=== PATIENT | female | born 1950 | race Caucasian/White ===

== ENCOUNTER 2019-01-29 08:34 | Emergency (ER) | payer MEDICARE, OTHER, SELFPAY ==
[2019-01-29 08:35] VITALS: BP 213/101; PULSE 60; RESP 18; TEMP 36.4; O2SAT 96; BMI 39.8
--- NOTE | 2019-01-29 08:45 | EKG12_ITS ---
Test Reason : HYPERTENSION Blood Pressure : / mmHG Vent. Rate : 058 BPM Atrial Rate : 058 BPM P-R Int : 190 ms QRS Dur : 080 ms QT Int : 424 ms P-R-T Axes : 049 013 049 degrees QTc Int : 416 ms Sinus bradycardia Otherwise normal ECG Confirmed by EILEEN DALAL, SELENE ([id number]), slot editor ALAINA VEGA ([id number]) on 01/31/2019 8:55:52 AM Referred By: ELIGIO Confirmed By:SELENE ARELLANO MD
--- NOTE | 2019-01-29 08:45 | CT_ITS ---
STUDY: CT BRAIN WITHOUT CONTRAST REASON FOR EXAM: Female, 68 years old. One-week history of blurred vision and headaches. Hypertension. RADIATION DOSAGE (If Supplied By Facility): CTDIvol = ( 44.99 ) mGy, DLP = ( 779.24 ) mGycm TECHNIQUE: Transaxial CT imaging of the brain was performed without administration of intravenous contrast material. Individualized dose optimization techniques were used for this CT. COMPARISON: Comparison is made with prior study dated February 29, 2016. FINDINGS: Normal soft tissue structures. Normal calvarium. There is mild cerebral atrophy with widening of the extra-axial spaces and ventricular dilatation. There are areas of decreased attenuation within the white matter tracts of the supratentorial brain, consistent with microvascular disease changes. Normal basal ganglia and thalami. Normal brainstem. Normal cerebellum. There is no intracranial hemorrhage. There are no findings of an acute ischemic infarction. Atherosclerotic calcification of the vertebral arteries and cavernous portions of the internal carotid arteries bilaterally. Mucosal thickening of the right maxillary sinus. CT/Brain/Head without Contrast IMPRESSION: Chronic involutional changes of the brain. Mucosal thickening of the right maxillary sinus. Electronically Signed: Christiano Khalil, at 10:10 EDT , Service support ,
--- NOTE | 2019-01-29 08:46 | ED.VIS.GEN ---
History of Present Illness Chief Complaint: Hypertension Informant: Patient Onset: Weeks Context: Gradual Onset Timing: Intermittent Current Severity: Moderate Maximum Severity: Moderate Narrative: The patient presents to the emergency department with headache and elevated blood pressure. The patient states that normally, her blood pressure runs between 140 and 150 systolic. She states over the past week, she is had highs anywhere from 1 80-2 10. She states she is been compliant with her medications. She states there is been no recent change in her medications. She does admit to a pounding headache in her temples especially when her blood pressure is high. She states that her vision was blurry, but thinks it is because she needs new glasses. She denies any trouble speech. She denies any trouble swallowing. She denies any weakness. She has not had chest pain. She does admit to some shortness of breath, but states is been going on for months. Prior similar symptoms: No Recent Illness/Hospitalization: No Past Medical History - Allergies and Home Meds Allergies/Adverse Reactions: Allergies codeine Adverse Reaction (Verified 01/29/19 08:38) Vomiting Penicillins Adverse Reaction (Verified 01/29/19 08:38) Swelling Primary Care Physician: Bee Price MD [Primary Care Provider] - Prior records reviewed: Yes Past Medical History: - - Hypertension Surgical History: - - The section, nasal surgery Lives: With Family Smoking Status: Never smoker Alcohol: None Drugs: None - Family History Maternal Family History: Reports: Hypertension Paternal Family History: Reports: Stroke Review of Systems General: Denies: Chills, Fever, Sweats Eyes: Reports: Blurred Vision - bilaterally. Denies: Visual changes - bilaterally, Diplopia ENT: Denies: Rhinorrhea, Sore throat Cardiovascular: Denies: Chest pain, Palpitations Respiratory: Denies: Dyspnea, Cough, Dyspnea on exertion Gastrointestinal: Denies: Abdominal pain, Nausea, Vomiting, Diarrhea, Melena, Hematochezia Genitourinary: Denies: Dysuria, Hematuria, Frequency Musculoskeletal: Denies: Back pain, Extremity Pain Skin: Denies: Rash, Wounds Neurological: Reports: Headache. Denies: Weakness, Numbness Psych: Denies: Depression, Anxiety Endocrine: Denies: Polyuria Hematologic: Denies: Easy bruising Allergy: Denies: Uticaria Physical Exam Vital Signs/Narrative: Vital Signs Temp Pulse Resp BP Pulse Ox 01/29/19 08:35 97.6 F L 60 18 213/101 H 96 Inital Vital Signs reviewed: Yes General: Well nourished, Well developed, No Acute Distress Head: Normocephalic, Atraumatic Eyes: Perrl, EOMI ENT: Moist mucous membranes, No rhinorrhea Neck: Supple, Nontender Cardiovascular: Regular rate, Regular rhythm, No murmurs Respiratory: No distress, CTA bilaterally, Chest nontender Abdomen: Soft, Nontender, Nondistended, Normal bowel sounds Back: Nontender, Normal Inspection Extremities: Nontender, No edema Skin: Normal color, No rash Neurological: Alert, Oriented x3, Cranial nerves II-XII grossly intact, Normal Strength, Normal Sensation Psychological: Normal affect, Normal Mood Diagnostic/Tx/Re-eval Clinical Impression(s) from Imaging Studies Brain CT 01/29/19 08:45 IMPRESSION: Chronic involutional changes of the brain. Mucosal thickening of the right maxillary sinus. Electronically Signed: Christiano Khalil, at 10:10 EDT , Service support , Abnormal Lab Results 01/29/19 01/29/19 09:15 09:15 WBC 6.5 RBC 4.05 L Hgb 12.9 Hct 37.9 MCV 93.6 MCH 31.9 MCHC 34.0 RDW Std Deviation 43.8 RDW Coeff of Nargis 12.7 Plt Count 273 MPV 9.5 Immature Gran % (Auto) 0.300 Neut % (Auto) 64.1 Lymph % (Auto) 22.4 Moca % (Auto) 8.7 Eos % (Auto) 3.7 Baso % (Auto) 0.8 Absolute Neuts (auto) 4.2 Absolute Lymphs (auto) 1.45 Nucleated RBC % 0 Sodium 140 Potassium 3.9 Chloride 108 H Carbon Dioxide 26.0 Anion Gap 6 BUN 13 Creatinine 0.96 Estim Creat Clear Calc 47.04 Est GFR (MDRD) Af Amer 74 Est GFR (MDRD) Non-Af 61 BUN/Creatinine Ratio 13.5 Glucose 95 Calcium 8.8 Total Bilirubin 0.40 AST 17 ALT 21 Alkaline Phosphatase 103 Total Protein 7.4 Albumin 3.7 Globulin 3.7 Albumin/Globulin Ratio 1.0 - Rhythm Strip Rhythm Strip: Sinus Rhythm Rate: 58 Ectopy: None - EKG Initial EKG Interpretation: Sinus Rhythm, No Acute Injury Pattern Prior: Unchanged - Medical Decision Making The patient presents to the emergency department elevated blood pressure and headache. Her neuro exam is reassuring. She has an NIH of 0 and a GCS of 15. Patient was given hydralazine and had significant improvement of her blood pressure and improvement of her headache. EKG was obtained which showed no evidence of strain pattern. Screening labs are also unremarkable. With the patient's headache, I did obtain a head CT. This is also negative. In review with the patient, she has stopped taking her amlodipine just over a month ago. I feel this is likely the cause of her new hypertensives. I did eligibility counselor her on the importance of taking this. I will refill her prescription. At this point, I do feel that she is safe for outpatient therapy. She is comfortable with this plan of care. Impression 1. Hypertension-established secondary to noncompliance ED Disposition - Plan for ED Patient: Instructions: HYPERTENSION, Established Prescriptions: Amlodipine [Norvasc] 5 mg PO DAILY #30 tab Prescription Printed Referrals: Bee Price MD [Primary Care Provider] -
[2019-01-29 09:22] LABS: Absolute Lymphocyte Count 1.45 X10^3/uL (0.83-4.51); Absolute Neutrophil Count 4.2 X10^3/uL (2.0-7.7); Basophil# 0.05 X10^3/uL; Basophil% 0.8 % (0-1); Eosinophil# 0.24 X10^3/uL; Eosinophils% 3.7 % (0-5); Hematocrit 37.9 % (37-47); Hemoglobin 12.9 g/dL (12.0-15.0); Lymphocyte # 1.45 X10^3/ul (4.0); Lymphocyte % 22.4 % (19-41); Mean Corpuscular Hgb 31.9 pg (27.0-32.0); Mean Corpuscular Volume 93.6 fL (81-99); Mean Platelet Vol. 9.5 fl (6.2-12.0); Monocyte# 0.56 X10^3/uL; Monocyte% 8.7 % (0-10); NRBC Flagged by Analyzer 0 % (0-5); Neutrophil # 4.15 X10^3/uL (2.7-7.7); Neutrophil % 64.1 % (47-70); Platelet Count 273 K/mm3 (150-450); RBC Distribution Width CV 12.7 % (11.6-14.6); RBC Distribution Width SD 43.8 fl (35.1-43.9); Red Blood Count 4.05 M/mm3 (4.2-5.4); White Blood Count 6.5 K/mm3 (4.4-11.0)
[2019-01-29] MEDS: hydrALAZINE 20 MG/ML Vial 5 MG IV (09:26)
[2019-01-29 09:39] LABS: AST(SGOT) 17 U/L (15-37); Alanine Aminotransfer ALT/SGPT 21 U/L (13-56); Albumin, Serum 3.7 g/dL (3.2-5.0); Alkaline Phosphatase 103 U/L (45-117); Anion Gap 6 (5-15); BUN 13 mg/dL (7-18); BUN/Creat Ratio 13.5 RATIO (10-20); Calcium,Total 8.8 mg/dL (8.5-10.1); Chloride 108 mmol/L (98-107); Creatinine, Serum 0.96 mg/dL (0.55-1.02); EST Glomerular Filtration Rate 61 mL/min (>60); Est Glom Filt Rate - Afr Amer 74 mL/min (>60); Estimated Creatinine Clearance 47.04 ml/min; Globulin 3.7 g/dL (2.2-4.2); Glucose 95 mg/dL (74-106); Potassium 3.9 mmol/L (3.5-5.1); Protein, Total 7.4 g/dL (6.4-8.2); Sodium Level 140 mmol/L (136-145)
[2019-01-29 10:11] VITALS: BP 150/80; PULSE 66; RESP 13; O2SAT 98
[2019-01-29 11:02] VITALS: BP 159/85; PULSE 68; RESP 15; O2SAT 98
--- NOTE | 2019-01-30 13:43 | ED.RN ---
PT COULD NOT FIND HER PRESCRIPTION SO ANOTHER ONE WAS CALLED IN TO [facility] GALLO FROM [facility]AYLEY HOLGUIN MD
== END 2019-01-29 11:03 | disposition home or self-care (01) ==
LOC: ED 09:18
PROVIDERS: Emergency Provider Emergency Medicine; Family Provider Internal Medicine; PCP Internal Medicine
DX: I10 Essential (primary) hypertension (principal); Z91.19 Patient's noncompliance with other medical treatment and regimen; Z91.14 Patient's other noncompliance with medication regimen; Z88.0 Allergy status to penicillin; Z88.5 Allergy status to narcotic agent
CPT/HCPCS: 36415; 70450; 80053; 85025; 93005; 96374; 99285; J7030; A4216

== ENCOUNTER 2022-04-28 16:52 | Emergency (ER) | payer MEDICARE, OTHER, SELFPAY ==
[2022-04-28] VITALS (11 sets, daily range): BP systolic 122–150; BP diastolic 64–89; PULSE 54–70; RESP 13–22; TEMP 35.8–37.2; O2SAT 95–99; BMI 40.7
--- NOTE | 2022-04-28 17:47 | EKG12_ITS ---
Test Reason : CP Blood Pressure : / mmHG Vent. Rate : 061 BPM Atrial Rate : 061 BPM P-R Int : 178 ms QRS Dur : 074 ms QT Int : 400 ms P-R-T Axes : 060 029 052 degrees QTc Int : 402 ms Normal sinus rhythm Low voltage QRS Borderline ECG Confirmed by MALIKA DALAL, CLARICE ([id number]), department editor ALAINA VEGA ([id number]) on 05/04/2022 9:30:32 A M Referred By: JANET/EZIO Confirmed By:ALVARO DALY MD
--- NOTE | 2022-04-28 17:48 | ED.VIS.CHEST ---
HPI History of Present Illness Chief Complaint: Chest Pain Informant: patient Onset/Context/Timing Onset: Hours (several) Activity at onset: sudden, onset, activity on onset and rest Timing: Continuous Quality: Positive for Aching (substernal) and Sharp (RUE and neck) Current Severity: Moderate Maximum Severity: Moderate Worsened By: Breathing (back/neck mildly) Relieved By: Nothing Associated Symptoms: Positive for Nausea and Dyspnea; Negative for Lightheadedness or Palpitations Narrative Narrative: Patient having chest discomfort has been constant for the last couple hours, has never had this before. Started in her back and right neck down into her right upper extremity, discomfort not numbness. Somewhat of a pleuritic component. No history of DVT or PE. No recent travel or immobilization/hospitalization/surgery. Swelling in both of her legs for the last several months. Last time she had a treadmill stress test was several years ago, she has never required heart catheterization or had any other heart issues that she knows of. [facility] Medical History Anxiety CPAP (continuous positive airway pressure) dependence Depression Hypertension Hypothyroidism Kidney stones Non-smoker Sleep apnea Home Medications ibuprofen 600 mg tablet 600 mg PO DAILY PRN Pain 02/29/16 [History Last Taken Unknown] levothyroxine 100 mcg tablet 100 mcg PO DAILY 02/29/16 [History Last Taken Unknown] meclizine 25 mg tablet (Antivert) 25 mg PO Q6H PRN PRN Vertigo 02/29/16 [History Last Taken Unknown] quetiapine 100 mg tablet 100 mg PO QHS 02/29/16 [History Last Taken Unknown] amlodipine 2.5 mg tablet 2.5 mg PO DAILY 01/29/19 [History Last Taken Unknown] amlodipine 5 mg tablet 5 mg PO DAILY #30 tabs 01/29/19 [Rx Last Taken Unknown] atenolol 50 mg tablet 50 mg PO DAILY 01/29/19 [History Last Taken Unknown] furosemide 20 mg tablet 20 mg PO QODAY 01/29/19 [History Last Taken Unknown] loratadine 10 mg capsule 10 mg PO DAILY 01/29/19 [History Last Taken Unknown] olmesartan 40 mg tablet 40 mg PO DAILY 01/29/19 [History Last Taken Unknown] potassium chloride 10 mEq tablet,extended release 2 tab PO QODAY 01/29/19 [History Last Taken Unknown] Allergy/AdvReac Type Severity Reaction Status Date / Time codeine AdvReac Vomiting Verified 04/28/22 16:56 Penicillins AdvReac Swelling Verified 04/28/22 16:56 Social History Smoking Status: Never smoker ROS ROS ED Constitutional Constitutional ED: Denies chills or fever(s) Eyes Eyes: Denies change in vision or diplopia ENT ENT ED: Denies rhinorrhea or sore throat Cardiovascular Cardiovascular: Reports chest pain; Denies palpitations Respiratory/Chest Respiratory/Chest: Reports dyspnea; Denies cough Gastrointestinal Gastrointestinal: Reports nausea; Denies abdominal pain, diarrhea or vomiting Genitourinary Genitourinary ED: Denies dysuria or hematuria Musculoskeletal Musculoskeletal: Reports as per HPI, back pain and extremity pain; Denies neck pain Integumentary Denies abscess or rash Neurologic Neurologic: Denies headache(s), paresthesias or weakness Psychiatric Psychiatric: Denies anxiety or suicidal thoughts EXAM Physical Exam Const Vital Signs: 04/28/22 16:53 04/28/22 17:01 04/28/22 17:01 Temperature 98.9 F Temperature Source Temporal Pulse Rate 70 68 Respiratory Rate 16 16 Respiratory Effort Normal Blood Pressure 141/84 H 150/76 H Blood Pressure Mean 103 100 Pulse Ox 95 97 Oxygen Delivery Method Room Air Room Air 04/28/22 18:10 04/28/22 18:11 04/28/22 18:17 Temperature Temperature Source Pulse Rate 56 L 57 L 67 Respiratory Rate 13 Respiratory Effort Blood Pressure 147/68 H 147/68 H 142/75 H Blood Pressure Mean 94 Pulse Ox 97 Oxygen Delivery Method Room Air 04/28/22 18:22 04/28/22 19:09 04/28/22 19:09 Temperature Temperature Source Pulse Rate 64 57 L Respiratory Rate 21 H Respiratory Effort Blood Pressure 123/67 H 123/64 H Blood Pressure Mean 83 Pulse Ox 96 Oxygen Delivery Method Room Air Room Air Positive well nourished, well developed and obese General Appearance ED: well developed and NAD Nutritional Appearance: obese HEENT Reports moist mucous membranes normocephalic and atraumatic Eyes PERRL and EOMs intact bilaterally Neck full ROM and supple Resp normal respiratory effort and clear to auscultation bilaterally Cardio regular rate and regular rhythm Cardio Narrative: Systolic murmur decrescendo 2/6 Peripheral Pulses: pulses 2+ throughout GI non-tender and non-distended Auscultation: normoactive bowel sounds Palpation: soft Back/Spine no CVA tenderness General Back: other FROM Extremity normal to inspection General Extremety ED: Yes edema; Negative for pulses abnormal or tenderness General Extremity: edema bilateral lower extremity Details: mild (Limited exam due to obesity. No significant pitting.); Negative for pulses abnormal Neuro oriented x3, CN's II-XII intact bilaterally and no sensory deficits noted Sensorium / Orientation: awake and alert Motor Exam: strength 5/5 throughout Skin no rashes or lesions noted and no wounds Heart Score History: Moderately Suspicious ECG: Normal Age: >/= 65 years Risk Factors: 1 or 2 Risk Factors Troponin: </= Normal Limit Score: 4 MDM MDM MDM Narrative Medical decision making narrative: Cardiac work-up including a D-dimer was obtained since the patient has mildly pleuritic component of discomfort, the D-dimer was elevated at 2.8, so we did a CT angiography of the chest for this low risk patient otherwise, it is negative for pulmonary embolus or anything else acute. In the meantime patient was given aspirin and nitroglycerin, this did not improve her symptoms but they were still present. She remains comfortable without any distress or other new symptoms or telemetry events. Her EKG is normal. Her initial troponin is 7, the repeat is 8. Her heart score is 4, 5 if you consider her history more concerning because it got better with nitroglycerin. Discussed all that with Dr. Pradhan, he agrees that esophageal etiologies are in the differential here, and agrees that outpatient follow-up is reasonable. We will have the patient follow-up with her PCP, and I will offer her a GI cocktail or similar prior to discharge. Lab Data Attestation: I reviewed the patient's lab results. Labs: Laboratory Results - last 24 hr 04/28/22 04/28/22 04/28/22 18:03 18:03 18:03 WBC 5.9 RBC 3.28 L Hgb 10.6 L Hct 32.2 L MCV 98.2 MCH 32.3 H MCHC 32.9 RDW Std Deviation 47.6 H RDW Coeff of Nargis 13.2 Plt Count 240 MPV 9.7 Immature Gran % (Auto) 0.300 Neut % (Auto) 75.1 H Lymph % (Auto) 13.2 L Sibley % (Auto) 8.0 Eos % (Auto) 2.7 Baso % (Auto) 0.7 Absolute Neuts (auto) 4.4 Absolute Lymphs (auto) 0.78 L Nucleated RBC % 0 APTT 31.0 D-Dimer Quant (PE/DVT) 2.81 H* Sodium 139 Potassium 3.7 Chloride 107 Carbon Dioxide 26.0 Anion Gap 6 BUN 14 Creatinine 1.43 H Estim Creat Clear Calc 30.28 Est GFR (MDRD) Af Amer 47 L Est GFR (MDRD) Non-Af 39 L BUN/Creatinine Ratio 9.8 L Glucose 95 Calcium 8.3 L Troponin I High Sens 7 B-Natriuretic Peptide 04/28/22 04/28/22 18:03 20:11 WBC RBC Hgb Hct MCV MCH MCHC RDW Std Deviation RDW Coeff of Nargis Plt Count MPV Immature Gran % (Auto) Neut % (Auto) Lymph % (Auto) Sibley % (Auto) Eos % (Auto) Baso % (Auto) Absolute Neuts (auto) Absolute Lymphs (auto) Nucleated RBC % APTT D-Dimer Quant (PE/DVT) Sodium Potassium Chloride Carbon Dioxide Anion Gap BUN Creatinine Estim Creat Clear Calc Est GFR (MDRD) Af Amer Est GFR (MDRD) Non-Af BUN/Creatinine Ratio Glucose Calcium Troponin I High Sens 8 B-Natriuretic Peptide 167.5 H Radiography Chest X-Ray - ED: 1 View, Read by ED Physician, Normal and No Acute Disease Diagnostic Testing: Clinical Impression(s) from Imaging Studies Chest X-Ray 04/28/22 18:22 IMPRESSION: There are no acute findings. Electronically Signed: Madhav Post MD at 18:53 EST , Chest CTA 04/28/22 19:23 IMPRESSION: No demonstrated pulmonary embolism or arterial dissection. Electronically Signed: Madhav Post MD at 19:49 EST , Rhythm Strip Rhythm Strip: Sinus Rhythm Rate: 60 Ectopy: None EKG Initial EKG: Attestation: I personally reviewed and interpreted this EKG as follows: Interpretation: Sinus Rhythm and No Acute Injury Pattern Discharge Plan Triage Chief Complaint: Chest Pain ED Provider: Jere Childs Dx/Rx/DC Orders Clinical Impression: Chest pain, unspecified, Acute upper back pain Instructions: ED Chest Pain, Uncertain Cause Prescriptions: No Action ibuprofen 600 MG tablet 600 mg PO DAILY PRN (Reason: Pain) Label Comments: PAIN quetiapine 100 MG tablet 100 mg PO QHS Label Comments: SLEEP meclizine [Antivert] 25 MG tablet 25 mg PO Q6H PRN PRN (Reason: Vertigo) Label Comments: VERTIGO levothyroxine 100 MCG tablet 100 mcg PO DAILY Label Comments: THYROID amlodipine 2.5 MG tablet 2.5 mg PO DAILY potassium chloride 10 MEQ tablet extended release 2 tab PO QODAY furosemide 20 MG tablet 20 mg PO QODAY atenolol 50 MG tablet 50 mg PO DAILY olmesartan 40 MG tablet 40 mg PO DAILY loratadine 10 MG capsule 10 mg PO DAILY amlodipine 5 MG tablet 5 mg PO DAILY Qty: 30 0RF Primary Care Provider: Bee Price Referrals: Bee Price MD [Primary Care Provider] - As soon as possible Disposition Disposition: Home, Self Care
[2022-04-28] MEDS: Nitroglycerin SL (ED/IMG/CATH) 0.4 MG TABLET SL ×3 (18:11→18:22)
[2022-04-28] MEDS: Aspirin 81 MG TAB.CHEW 324 MG PO (18:11)
[2022-04-28] MEDS: 0.9% Normal Saline 1,000 ML 150 ML IV (18:11)
[2022-04-28 18:16] LABS: Absolute Lymphocyte Count 0.78 X10^3/uL (0.83-4.51); Absolute Neutrophil Count 4.4 X10^3/uL (2.0-7.7); Basophil# 0.04 X10^3/uL; Basophil% 0.7 % (0-1); Eosinophil# 0.16 X10^3/uL; Eosinophils% 2.7 % (0-5); Hematocrit 32.2 % (37-47); Hemoglobin 10.6 g/dL (12.0-15.0); Lymphocyte # 0.78 X10^3/ul (0.83-4.51); Lymphocyte % 13.2 % (19-41); Mean Corp Hgb Conc 32.9 g/dL (32-36); Mean Corpuscular Hgb 32.3 pg (27.0-32.0); Mean Corpuscular Volume 98.2 fL (81-99); Mean Platelet Vol. 9.7 fl (6.2-12.0); Monocyte# 0.47 X10^3/uL; NRBC Flagged by Analyzer 0 % (0-5); Neutrophil # 4.43 X10^3/uL (2.7-7.7); Neutrophil % 75.1 % (47-70); Platelet Count 240 K/mm3 (150-450); RBC Distribution Width CV 13.2 % (11.6-14.6); RBC Distribution Width SD 47.6 fl (35.1-43.9); Red Blood Count 3.28 M/mm3 (4.2-5.4); White Blood Count 5.9 K/mm3 (4.4-11.0)
--- NOTE | 2022-04-28 18:22 | RAD_ITS ---
STUDY: XR Chest 1 View 04/28/2022 6:22 PM REASON FOR EXAM: Female, 71 years old. CHEST PAIN chest pain COMPARISON: 02/29/2016 TECHNIQUE: XR Chest 1 View FINDINGS: There is no demonstrated pleural abnormality. Normal heart size. Normal mediastinum. Normal jerome. Prominent appearing increased interstitial lung markings. Normal visualized pulmonary arteries. There is atherosclerotic calcification of the aortic arch with tortuosity. There are diffuse degenerative changes of the visualized thoracic spine. There is degenerative osteoarthritis of the bilateral shoulders. There is no demonstrated abnormality of the visualized soft tissue structures of the upper abdomen. RAD/Chest 1 View (Portable) IMPRESSION: There are no acute findings. Electronically Signed: Madhav Post MD at 18:53 EST ,
[2022-04-28 18:25] LABS: Anion Gap 6 (5-15); BUN 14 mg/dL (7-18); BUN/Creat Ratio 9.8 RATIO (10-20); Calcium,Total 8.3 mg/dL (8.5-10.1); Chloride 107 mmol/L (98-107); Creatinine, Serum 1.43 mg/dL (0.55-1.02); EST Glomerular Filtration Rate 39 mL/min (>60); Est Glom Filt Rate - Afr Amer 47 mL/min (>60); Estimated Creatinine Clearance 30.28 ml/min; Glucose 95 mg/dL (74-106); Potassium 3.7 mmol/L (3.5-5.1); Sodium Level 139 mmol/L (136-145); Troponin-I HS (w/2H Reflex) 7 pg/mL (3.0-54.0)
[2022-04-28 18:34] LABS: BNP,B-Type NATRIURETIC PEPTIDE 167.5 pg/mL (0-100)
[2022-04-28 18:41] LABS: D-Dimer Quantitative (DVT/PE) 2.81 FEU/ug/m (0.27-0.49)
--- NOTE | 2022-04-28 19:23 | CT_ITS ---
EXAM: CT ANGIOGRAPHY CHEST WITHOUT AND WITH INTRAVENOUS CONTRAST CLINICAL INDICATION: chest and back pain, elevated d-dimer TECHNIQUE: Helically acquired angiography images were obtained of the chest without and with intravenous contrast. This CT exam was performed using one or more of the following dose reduction techniques: automated exposure control, adjustment of the mA and/or kV according to patient size, and/or use of iterative reconstruction technique. This report was created using [employer] report generation technology. MIP reconstructed images were created and reviewed. CONTRAST: IV 100mL [id number] RADIATION DOSE: CTDIvol = 12.61 mGy, DLP = 520.10 mGy-cm COMPARISON: None. FINDINGS: PULMONARY ARTERIES: No demonstrated pulmonary embolism or arterial dissection. AORTA: There is atherosclerotic calcification of the aortic arch with tortuosity and elongation of the aortic arch and descending thoracic aorta. Normal in caliber. No evidence of dissection. GREAT VESSELS OF AORTIC ARCH: Unremarkable. Normal in caliber. No evidence of dissection. LUNGS AND PLEURAL SPACES: Unremarkable. No mass. No consolidation or edema. No pleural effusion or thickening. No pneumothorax. HEART: Unremarkable. Heart size is normal. No pericardial effusion. No signs of right heart strain, ratio of right ventricle to left ventricle measures less than 1. MEDIASTINUM: Unremarkable. No mediastinal or hilar adenopathy. Esophagus is unremarkable. No hiatal hernia. THYROID: Unremarkable. No thyroid lesions. BONES/JOINTS: There are degenerative changes of the shoulders. There are multi-level degenerative changes of the thoracic spine. No suspicious lytic or blastic abnormality. CT/CTA Chest W/WO Contrast IMPRESSION: No demonstrated pulmonary embolism or arterial dissection. Electronically Signed: Madhav Post MD at 19:49 EST ,
[2022-04-28 20:06] LABS: Reflex Troponin-HS? (from REC) Y
[2022-04-28 20:46] LABS: Troponin-I HS 8 pg/mL (3.0-54.0)
[2022-04-28] MEDS: Mag Hydrox/Al Hydrox/Simeth 30 ML UDC PO (21:59)
== END 2022-04-28 22:11 | disposition home or self-care (01) ==
PROVIDERS: Emergency Provider Emergency Medicine; PCP Internal Medicine; Visit Provider Emergency Medicine
DX: R07.9 Chest pain, unspecified (principal); R11.0 Nausea; M54.9 Dorsalgia, unspecified; I10 Essential (primary) hypertension; G47.30 Sleep apnea, unspecified; E03.9 Hypothyroidism, unspecified; Z99.89 Dependence on other enabling machines and devices; M79.89 Other specified soft tissue disorders; F41.9 Anxiety disorder, unspecified; F32.A Depression, unspecified; E66.9 Obesity, unspecified; R06.09 Other forms of dyspnea
CPT/HCPCS: 71045; 71275; 80048; 83880; 84484; 85025; 85379; 85730; 93005; 99285; J7030; Q9967; A4216